=== PATIENT | female | born 1960 | race African-American/Black ===

== ENCOUNTER 2016-08-22 10:33 | Emergency (ER) | payer BC, OTHER ==
[~2016-08-22] VITALS: Ht 175.3 cm; Wt 84.0 kg
[~2016-08-22 10:33] MED LIST: CYCL7.5T33 PO; IBUP800T23 PO
[2016-08-22 10:39] VITALS: BP 118/85; PULSE 81; RESP 14; TEMP 98.5; O2SAT 100
[2016-08-22] MEDS ORDERED: BACT800T5 PO (13:17)
--- NOTE | 2016-08-22 13:18 | PD ---
HPI Chief Complaint: Bite or Sting Time Seen by Provider: 12:20 Travel History International Travel<30 days: No Contact w/Intl Traveler<30days: No Traveled to known affect area: No History of Present Illness HPI 56-year-old female presents emergency department for evaluation of right fourth digit pain. She reports that 4 days ago while fishing an insect bit the distal portion of her finger. Since then the area has become red, painful and slightly swollen. She denies puncture wound to this area. She denies seeing the insect that bit the finger. She reports normal sensation and movement of the digit. Denies fever or chills. No past medical history. PFSH Past Medical History Medical History: Denies Significant Hx Hx Anticoagulant Therapy: No Arthritis: Yes (RIGHT KNEE, OSTEOARTHRITIS) Cardiovascular Problems: No Chemotherapy: No Cerebrovascular Accident: No Diabetes: No Diminished Hearing: No Respiratory: No Tetanus Vaccination: < 5 Years Influenza Vaccination: No Menopausal: Yes : 2 Para: 2 Past Surgical History Hysterectomy: No Social History Alcohol Use: No Tobacco Use: No Substance Use: No Allergies-Medications (Allergen,Severity, Reaction): Coded Allergies: Codeine (Verified Allergy, Mild, LIGHT HEAD AND DIZZY, 05/17/16) Reported Meds & Prescriptions Reported Meds & Active Scripts Active Review of Systems Except as stated in HPI: all other systems reviewed are Neg Physical Exam Narrative GENERAL: Well-nourished, well-developed patient. SKIN: Focused skin assessment warm/dry. Mild erythema to right fourth digit distal volar aspect. HEAD: Normocephalic. EYES: No scleral icterus. No injection or drainage. NECK: Supple, trachea midline. No JVD or lymphadenopathy. CARDIOVASCULAR: Regular rate and rhythm without murmurs, gallops, or rubs. RESPIRATORY: Breath sounds equal bilaterally. No accessory muscle use. GASTROINTESTINAL: Abdomen soft, non-tender, nondistended. MUSCULOSKELETAL: No cyanosis, or edema. Mild erythema to right fourth digit distal volar aspect. No wound. No evidence of a puncture wound. Mildly tender to palpation. Mild swelling and erythema. Full painless range of motion of the digit. No lymphangitis or cellulitis. No fluctuance or abscess. BACK: Nontender without obvious deformity. No CVA tenderness. Data Data Last Documented VS Vital Signs Date Time Temp Pulse Resp B/P Pulse Ox O2 Delivery O2 Flow Rate FiO2 08/22/16 10:39 98.5 81 14 118/85 100 Room Air Orders Hand, Limited (2vws) (08/22/16 ) MDM Medical Decision Making Medical Screen Exam Complete: Yes Emergency Medical Condition: Yes Differential Diagnosis Early abscess, insect bite, less likely retained foreign body Narrative Course 56-year-old female presents emergency department for evaluation of right fourth digit pain. She reports 4 days ago while fishing an insect bit her on the distal portion of the right fourth digit. Since then the area has become tender , red, slightly swollen. On exam the right fourth digit finger pad is mildly erythematous and tender to palpation, no fluctuance, no puncture wound to indicate a retained foreign body. X-ray was negative for retained foreign body. Patient will be started on Bactrim to cover for possible early abscess. Diagnosis Primary Impression: Abscess Referrals: Primary Care Physician Additional Instructions: Take the antibiotics as prescribed. Follow-up with her doctor in 2 days for recheck. Return to the emergency department if he developed new or worsening symptoms. Scripts Sulfamethoxazole-Trimethoprim (Bactrim DS)800-160 Mg Tab1 Tab PO BID #20 TAB Prov:Jaja Patel 08/22/16 Disposition: 01 DISCHARGE HOME Condition: Stable Jaja Patel Aug 22, 2016 13:18
--- NOTE | 2016-08-22 13:25 | RADHPO ---
EXAM DATE/TIME: 08/22/2016 12:53 [facility] COMPARISON: No previous studies available for comparison. INDICATIONS : Right hand swelling & pain primarily on the anterior side of the distal 4th digit after possibly bein g bit while fishing 4 days ago. MEDICAL HISTORY : Osteoarthritis. SURGICAL HISTORY : Right wrist ENCOUNTER: Initial ACUITY: 4 - 6 days PAIN SCORE: 3/10 LOCATION: Right hand FINDINGS: Two view examination of the right hand demonstrates no soft tissue swelling, dislocation, or fracture . The joint spaces are maintained. Bony mineralization is normal. CONCLUSION: Unremarkable limited examination of the right hand. Andres Cesar Jr., MD on August 22, 2016 at 13:23 Board Certified Radiologist. This report was verified electronically.
== END 2016-08-22 13:24 | disposition home or self-care (01) ==
LOC: PHEFT 10:33
DX: L02.511 Cutaneous abscess of right hand (principal)
CPT/HCPCS: 73120; 99283

== ENCOUNTER 2016-10-09 10:29 | Emergency (ER) | payer BC ==
[~2016-10-09] VITALS: Ht 175.3 cm; Wt 85.3 kg
[~2016-10-09 10:29] MED LIST changes: +BACT800T5 PO; -CYCL7.5T33 PO; -IBUP800T23 PO
[2016-10-09 10:40] VITALS: BP 146/67; PULSE 79; RESP 18; TEMP 98.5; O2SAT 98
--- NOTE | 2016-10-09 11:22 | PD ---
HPI Chief Complaint: ENT Complaint Time Seen by Provider: 10:50 Travel History International Travel<30 days: No Contact w/Intl Traveler<30days: No Traveled to known affect area: No History of Present Illness HPI Patient is a 56 year old female who comes in complaining of cough, sore throat, congestion. She says this has been going on for two days. She says she had a fever two days ago of 99.3. She denies any difficulty swallowing. She took some Excedrin without relief. PFSH Past Medical History Hx Anticoagulant Therapy: No Arthritis: Yes (RIGHT KNEE, OSTEOARTHRITIS) Cardiovascular Problems: No Chemotherapy: No Cerebrovascular Accident: No Diabetes: No Diminished Hearing: No Respiratory: No Influenza Vaccination: No ?: Not Menopausal: Yes : 2 Para: 2 Past Surgical History Hysterectomy: No Social History Alcohol Use: No Tobacco Use: No Substance Use: No Allergies-Medications (Allergen,Severity, Reaction): Coded Allergies: Codeine (Verified Allergy, Mild, LIGHT HEAD AND DIZZY, 10/09/16) Reported Meds & Prescriptions Reported Meds & Active Scripts Active Tessalon Perles (Benzonatate) 100 Mg Cap 100 Mg PO TID PRN 7 Days Review of Systems Eyes: No: Blurred Vision HENT: Positive: Sore Throat, Congestion, No: Headaches Cardiovascular: No: Chest Pain or Discomfort Respiratory: Positive: Cough, No: Shortness of Breath Gastrointestinal: No: Nausea, Vomiting Musculoskeletal: No: Pain Skin: No Rash, No Change in Pigmentation Neurologic: No: Weakness, Dizziness Physical Exam Narrative GENERAL: Awake and alert, in no acute distress. SKIN: Focused skin assessment warm/dry. HEAD: Atraumatic. Normocephalic. EYES: Pupils equal and round. No scleral icterus. ENT: Mucous membranes pink and moist. No tonsillar swelling or exudates. No pharyngeal erythema. Uvula is midline. NECK: Trachea midline. No JVD. CARDIOVASCULAR: Regular rate and rhythm. No murmur appreciated. RESPIRATORY: No accessory muscle use. Clear to auscultation. Breath sounds equal bilaterally. MUSCULOSKELETAL: No obvious deformities. No clubbing. No cyanosis. No edema. NEUROLOGICAL: Awake and alert. No obvious cranial nerve deficits. Motor grossly within normal limits. Normal speech. Data Data Last Documented VS Vital Signs Date Time Temp Pulse Resp B/P Pulse Ox O2 Delivery O2 Flow Rate FiO2 10/09/16 11:44 66 18 141/75 100 Room Air 10/09/16 10:40 98.5 Orders Chest, Pa & Lat (10/09/16 ) MDM Medical Decision Making Medical Screen Exam Complete: Yes Emergency Medical Condition: Yes Medical Record Reviewed: Yes Differential Diagnosis URI vs pneumonia vs bronchitis Narrative Course Patient is a 56 year old female who comes in complaining of cough, sore throat, and congestion. Exam shows no acute abnormalities. Chest XR performed, shows no acute abnormalities. I explained to the patient she likely has a virus. She is advised to take over the counter cold medications. Given prescription for Tessalon Perles. Advised to follow up with a primary care doctor. Advised to return to the ED as needed for any worsening symptoms. Diagnosis Primary Impression: Upper respiratory infection Qualified Code: J06.9 - Viral upper respiratory tract infection Patient Instructions: General Instructions, Upper Respiratory Infection (ED) Additional Instructions: Take nasal decongestants from the pharmacy. Take cough medicine as needed. Take Tylenol or Ibuprofen as needed for pain. Follow up with a primary care physician. Return to the ED as needed for any worsening symptoms. Scripts Benzonatate (Tessalon Perles)100 Mg [id number] Mg PO TID PRN (COUGH) 7 Days Ref 0 Prov:Miesha Lechuga MD 10/09/16 Disposition: 01 DISCHARGE HOME Condition: Stable Miesha Lechuga MD Oct 09, 2016 11:22
[2016-10-09] MEDS ORDERED: BENZ100 PO (11:40)
[2016-10-09 11:44] VITALS: BP 141/75; PULSE 66; RESP 18; O2SAT 100
--- NOTE | 2016-10-09 12:21 | RADRPT ---
EXAM DATE/TIME: 10/09/2016 11:11 [facility] COMPARISON: CHEST PA & LAT, October 23, 2014, 16:54. INDICATIONS : Chest tightness and cough for 2 days. MEDICAL HISTORY : None. SURGICAL HISTORY : None. ENCOUNTER: Initial ACUITY: 2 days PAIN SCORE: 3/10 LOCATION: Bilateral chest FINDINGS: PA and lateral views of the chest demonstrate the lungs to be symmetrically aerated without evidence of mass, infiltrate or effusion. The cardiomediastinal contours are unremarkable. Osseous structure s are intact with some degenerative spurring of the dorsal spine. CONCLUSION: No acute cardiopulmonary process. Dirk Callaway MD on October 09, 2016 at 12:18 Board Certified Radiologist. This report was verified electronically.
== END 2016-10-09 12:59 | disposition home or self-care (01) ==
LOC: PHEFT 10:29
DX: J06.9 Acute upper respiratory infection, unspecified (principal); B97.89 Other viral agents as the cause of diseases classified elsewhere; R05 Cough; Z87.39 Personal history of other diseases of the musculoskeletal system and connective tissue
CPT/HCPCS: 71020; 99283

== ENCOUNTER 2016-11-23 11:50 | Emergency (ER) | payer BC ==
[~2016-11-23] VITALS: Ht 175.3 cm; Wt 85.0 kg
[~2016-11-23 11:50] MED LIST changes: -BACT800T5 PO; +BENZ100 PO
[2016-11-23 11:52] VITALS: BP 169/96; PULSE 73; RESP 15; TEMP 98.4; O2SAT 98
[2016-11-23 12:05] VITALS: BP 123/85; PULSE 70; RESP 24; O2SAT 100
[2016-11-23] MEDS ORDERED: SODIUM CHLOR 0.9% 1000 ML INJ 1,000 ML IV SCH (12:12)
[2016-11-23] MEDS ORDERED: ONDANSETRON HCL 4 MG/2 ML VIAL IVP ONE (12:15)
[2016-11-23] MEDS ORDERED: MORPHINE SULFATE 4 MG/ML INJ IV PUSH ONE (12:15)
[2016-11-23] MEDS ORDERED: SODIUM CHLORIDE 0.9% FLUSH 10 ML FLUSH IV FLUSH PRN (12:15)
--- NOTE | 2016-11-23 12:21 | PD ---
HPI Chief Complaint: Abdominal Pain Time Seen by Provider: 12:08 Travel History International Travel<30 days: No Contact w/Intl Traveler<30days: No Traveled to known affect area: No History of Present Illness HPI 56-year-old Afro-[place] female presents the emergency department with worsening right lower quadrant pain and tenderness. Patient states he was seen by her primary care physician 2 days ago and given Levaquin 750 daily as well as metronidazole 250 mg 3 times a day. Patient states the pain has been worsening over the last 2 days. She has decreased appetite but denies nausea or vomiting. She states she is still moving her bowels with laxatives. She has no history of abdominal surgeries or diverticulitis. She denies fever or chills. Patient describes the pain as a sharp pain in the right lower quadrant worse with movement, cough, walking, and riding in the car today. Patient denies urinary or vaginal symptoms. She is allergic to codeine but has no known drug allergies otherwise. PFSH Past Medical History Hx Anticoagulant Therapy: No Arthritis: Yes (RIGHT KNEE, OSTEOARTHRITIS) Cardiovascular Problems: No Chemotherapy: No Cerebrovascular Accident: No Diabetes: No Diminished Hearing: No Hypertension: Yes Respiratory: No ?: Not Menopausal: Yes : 2 Para: 2 Past Surgical History Surgical History: No Previous Surgery Hysterectomy: No Social History Alcohol Use: No Tobacco Use: No Substance Use: No Allergies-Medications (Allergen,Severity, Reaction): Coded Allergies: codeine (Unverified Allergy, Mild, LIGHT HEAD AND DIZZY, 11/23/16) Reported Meds & Prescriptions Reported Meds & Active Scripts Active No Active Prescriptions or Reported Medications Review of Systems Except as stated in HPI: all other systems reviewed are Neg General / Constitutional: No: Fever, Chills Eyes: No: Visual changes HENT: No: Headaches Cardiovascular: No: Chest Pain or Discomfort Respiratory: No: Shortness of Breath Gastrointestinal: Positive: Nausea, Abdominal Pain, Loss of Appetite, No: Vomiting, Diarrhea, Constipation Genitourinary: No: Urgency, Frequency, Dysuria, Decreased Urinary Output, Pelvic Pain, Flank Pain Musculoskeletal: No: Pain Skin: No Rash Neurologic: No: Weakness Psychiatric: No: Depression Endocrine: No: Polydipsia Hematologic/Lymphatic: No: Easy Bruising Physical Exam Narrative GENERAL: Patient is in no acute distress. SKIN: Warm and dry. Normal color. Normal turgor. No rash. HEAD: Atraumatic. Normocephalic. EYES: Pupils equal and round. No scleral icterus. No injection or drainage. ENT: No nasal bleeding or discharge. Mucous membranes pink and moist. Pharynx is clear. Airway is patent. NECK: Trachea midline. Supple and nontender. CARDIOVASCULAR: Regular rate and rhythm. RESPIRATORY: No accessory muscle use. Clear to auscultation. Breath sounds equal bilaterally. GASTROINTESTINAL: Abdomen soft, moderate right lower quadrant tenderness with positive rebound and psoas sign, nondistended. Bowel sounds are somewhat diminished in all quadrants. No CVA tenderness. Hepatic and splenic margins not palpable. MUSCULOSKELETAL: Extremities without clubbing, cyanosis, or edema. No obvious deformities. NEUROLOGICAL: Awake and alert. No obvious cranial nerve deficits. Motor grossly within normal limits. Five out of 5 muscle strength in the arms and legs. Normal speech. PSYCHIATRIC: Appropriate mood and affect; insight and judgment normal. Data Data Last Documented VS Vital Signs Date Time Temp Pulse Resp B/P (MAP) Pulse Ox O2 Delivery O2 Flow Rate FiO2 11/23/16 15:41 71 20 170/75 (106) 100 Room Air 11/23/16 11:52 98.4 Orders Orders Complete Blood Count With Diff (11/23/16 12:12) Comprehensive Metabolic Panel (11/23/16 12:12) Lipase (11/23/16 12:12) Lactic Acid (11/23/16 12:12) Prothrombin Time / Inr (Pt) (11/23/16 12:12) Act Partial Throm Time (Ptt) (11/23/16 12:12) Urinalysis - C+S If Indicated (11/23/16 12:12) Iv Access Insert/Monitor (11/23/16 12:12) Ecg Monitoring (11/23/16 12:12) Oximetry (11/23/16 12:12) NPO (11/23/16 12:12) Morphine Inj (Morphine Inj) (11/23/16 12:15) Ondansetron Inj (Zofran Inj) (11/23/16 12:15) Sodium Chlor 0.9% 1000 Ml Inj (Ns 1000 M (11/23/16 12:12) Sodium Chloride 0.9% Flush (Ns Flush) (11/23/16 12:15) Electrocardiogram (11/23/16 12:12) Oral Contrast - Adult (11/23/16 12:18) Vascular Access Team Consult/P PRN (11/23/16 12:35) Vascular Poc Ultrasound (11/23/16 ) Ct Abd/Pel W Iv Contrast(Rout) (11/23/16 14:37) Iohexol 350 Inj (Omnipaque 350 Inj) (11/23/16 15:21) Labs Laboratory Tests Test 11/23/16 13:00 White Blood Count 5.1 TH/MM3 Red Blood Count 3.96 MIL/MM3 Hemoglobin 11.2 GM/DL Hematocrit 33.4 % Mean Corpuscular Volume 84.3 FL Mean Corpuscular Hemoglobin 28.2 PG Mean Corpuscular Hemoglobin Concent 33.5 % Red Cell Distribution Width 14.3 % Platelet Count 288 TH/MM3 Mean Platelet Volume 7.1 FL Neutrophils (%) (Auto) 37.4 % Lymphocytes (%) (Auto) 51.1 % Monocytes (%) (Auto) 9.8 % Eosinophils (%) (Auto) 1.3 % Basophils (%) (Auto) 0.4 % Neutrophils # (Auto) 1.9 TH/MM3 Lymphocytes # (Auto) 2.6 TH/MM3 Monocytes # (Auto) 0.5 TH/MM3 Eosinophils # (Auto) 0.1 TH/MM3 Basophils # (Auto) 0.0 TH/MM3 CBC Comment DIFF FINAL Differential Comment Prothrombin Time 10.7 SEC Prothromb Time International Ratio 1.0 RATIO Activated Partial Thromboplast Time 27.5 SEC Urine Color YELLOW Urine Turbidity CLEAR Urine pH 7.0 Urine Specific Gibbs 1.013 Urine Protein NEG mg/dL Urine Glucose (UA) NEG mg/dL Urine Ketones NEG mg/dL Urine Occult Blood NEG Urine Nitrite NEG Urine Bilirubin NEG Urine Urobilinogen LESS THAN 2.0 MG/DL Urine Leukocyte Esterase TRACE Urine RBC 1 /hpf Urine WBC 3 /hpf Urine Squamous Epithelial Cells <1 /hpf Microscopic Urinalysis Comment CULT NOT INDICATED Blood Urea Nitrogen 12 MG/DL Creatinine 1.02 MG/DL Random Glucose 85 MG/DL Total Protein 7.7 GM/DL Albumin 3.7 GM/DL Calcium Level 8.8 MG/DL Alkaline Phosphatase 100 U/L Aspartate Amino Transf (AST/SGOT) 19 U/L Alanine Aminotransferase (ALT/SGPT) 21 U/L Total Bilirubin 0.8 MG/DL Sodium Level 141 MEQ/L Potassium Level 3.6 MEQ/L Chloride Level 107 MEQ/L Carbon Dioxide Level 30.2 MEQ/L Anion Gap 4 MEQ/L Estimat Glomerular Filtration Rate 68 ML/MIN Lactic Acid Level 0.6 mmol/L Lipase 99 U/L [facility] Medical Decision Making Medical Screen Exam Complete: Yes Emergency Medical Condition: Yes Medical Record Reviewed: Yes Differential Diagnosis Right lower quadrant pain. Appendicitis. Diverticulitis. Ovarian cyst. Urinary tract infection. Kidney stone. Narrative Course Patient is medically stable at time of exam. Labs ordered including CBC, CMP, lactic acid, lipase, urinalysis. EKG, chest x-ray, and abdominal pelvis CT is ordered with IV and oral contrast. IV access is obtained, and the patient is a 4 mg Zofran, 4 mg morphine, and 1000 mL normal saline bolus. CBC is unremarkable except for hemoglobin 11.2 and hematocrit of 33.4. CMP is unremarkable. Lactic acidosis 0.6. Coagulation studies are normal. Urinalysis is unremarkable. CT scan showed no acute process per radiologist. The patient is felt to have a muscle skeletal pain as nothing else came up showing any positive results. Patient is recommended to take Tylenol or ibuprofen as needed. Patient can use heat and ice as needed. Patient can return as needed. Diagnosis Primary Impression: Abdominal wall pain in right lower quadrant Referrals: Primary Care Physician Patient Instructions: Acute Abdominal Pain (ED), General Instructions, Groin Pain (ED) Additional Instructions: CBC is unremarkable except for hemoglobin 11.2 and hematocrit of 33.4. CMP is unremarkable. Lactic acidosis 0.6. Coagulation studies are normal. Urinalysis is unremarkable. CT scan showed no acute process per radiologist. The patient is felt to have a muscle skeletal pain as nothing else came up showing any positive results. Patient is recommended to take Tylenol or ibuprofen as needed. Patient can use heat and ice as needed. Patient can return as needed. Med/Other Pt SpecificInfo: No Change to Meds, No Meds Exist/No RX given Scripts No Active Prescriptions or Reported Meds Disposition: 01 DISCHARGE HOME Condition: Stable Evans Restrepo Nov 23, 2016 12:21
[2016-11-23 12:54] VITALS: O2SAT 97
[2016-11-23 13:15] LABS: AUTOMATED NEUTROPHIL # 1.9 TH/MM3 (1.8-7.7); BASOPHIL % 0.4 % (0.0-2.0); EOSINOPHIL # 0.1 TH/MM3 (0-0.4); EOSINOPHIL % 1.3 % (0.0-4.0); HEMATOCRIT 33.4 % (35.0-46.0); HEMO FLAGS DIFF FINAL; LYMPH % 51.1 % (9.0-44.0); LYMPHOCYTE # 2.6 TH/MM3 (1.0-4.8); MEAN CELL VOLUME 84.3 FL (80.0-100.0); MEAN CORPUSCULAR HEMOGLOBIN 28.2 PG (27.0-34.0); MEAN CORPUSCULAR HGB CONC 33.5 % (32.0-36.0); MONO % 9.8 % (0.0-8.0); NEUT % 37.4 % (16.0-70.0); PLATELET COUNT 288 TH/MM3 (150-450); RED BLOOD COUNT 3.96 MIL/MM3 (4.00-5.30); RED CELL DISTRIBUTION WIDTH 14.3 % (11.6-17.2); WHITE BLOOD COUNT 5.1 TH/MM3 (4.0-11.0)
[2016-11-23 13:19] LABS: BLOOD, URINE NEG (NEG); COMMENT (UR) CULT NOT INDICATED; CULTURE IF INDICATED CULT NOT INDICATED; GLUCOSE,URINE NEG (NEG); KETONE, URINE NEG (NEG); NITRITE,URINE NEG (NEG); SQUAMOUS EPITHELIAL CELL URINE <1 /hpf (0-5); URINE COLOR YELLOW (YELLW/STRAW)
[2016-11-23 13:28] LABS: APTT (PATIENT) 27.5 SEC (24.3-30.1); PROTHROMBIN TIME - PATIENT 10.7 SEC (9.8-11.6)
[2016-11-23 13:30] LABS: ALT (GPT) 21 U/L (10-53); ANION GAP 4 MEQ/L (5-15); AST (GOT) 19 U/L (15-37); BICARBONATE 30.2 MEQ/L (21.0-32.0); BLOOD UREA NITROGEN 12 MG/DL (7-18); CHLORIDE 107 MEQ/L (98-107); GLOMERULAR FILTRATION RATE 68 ML/MIN (>89); POTASSIUM 3.6 MEQ/L (3.5-5.1); SODIUM (NA) 141 MEQ/L (136-145)
[2016-11-23 13:32] LABS: ALKALINE PHOSPHATASE 100 U/L (45-117); TOTAL BILIRUBIN ADULT 0.8 MG/DL (0.2-1.0)
[2016-11-23] MEDS ORDERED: IOHEXOL 350 MG/ML 10 ML VIAL (for RAD DIAG) IV PUSH ONE (15:21)
[2016-11-23 15:41] VITALS: BP 170/75; PULSE 71; RESP 20; O2SAT 100
--- NOTE | 2016-11-23 15:54 | RADRPT ---
EXAM DATE/TIME: 11/23/2016 15:16 [facility] COMPARISON: CT ABDOMEN & PELVIS W CONTRAST, December 28, 2014, 15:01. INDICATIONS : Right lower quadrant pain. IV CONTRAST: 80 cc Omnipaque 350 (iohexol) IV ORAL CONTRAST: No oral contrast ingested. RADIATION DOSE: 5.45 CTDIvol (mGy) MEDICAL HISTORY : Hypertension. SURGICAL HISTORY : None. ENCOUNTER: Initial ACUITY: 1 day PAIN SCALE: 4/10 LOCATION: Right lower quadrant TECHNIQUE: Volumetric scanning of the abdomen and pelvis was performed. Using automated exposure control and adjustment of the mA and/or kV according to patient size, radiation dose was kept as low as reasonably achievable to obtain optimal diagnostic quality images. DICOM format image data is av ailable electronically for review and comparison. FINDINGS: CT Abdomen: The liver, spleen, pancreas, kidneys, adrenals are unremarkable. There is no evidence for any appreciable pathological adenopathy, free fluid, or bowel obstruction. There is slight left mark g base atelectasis. CT pelvis: There is no evidence for mass, abscess formation, or any significant adenopathy within the pelvis. The appendix appears intact without definite signs of appendicitis. CONCLUSION: Essentially unremarkable study. Charlie Flores MD on November 23, 2016 at 15:50 Board Certified Radiologist. This report was verified electronically.
--- NOTE | 2016-11-24 13:28 | EKG ---
Date Performed: 11/23/2016 Time Performed: 13:19:26 PTAGE: 56 years EKG: Sinus rhythm LOW QRS VOLTAGE IN PRECORDIAL LEADS INCOMPLETE RIGHT BUNDLE BRANCH BLOCK Compared to prior tracing n o significant change BORDERLINE ECG PREVIOUS TRACING : 05/24/2000 23.54 DOCTOR: Alphonso Knight Interpretating Date/Time 11/24/2016 13:27:14
== END 2016-11-23 16:19 | disposition home or self-care (01) ==
LOC: NEPC 11:50
DX: R10.31 Right lower quadrant pain (principal); R05 Cough; I10 Essential (primary) hypertension
CPT/HCPCS: 74177; 76937; 80053; 81001; 83605; 83690; 85025; 85610; 85730; 93005; 96361; 96374; 96375; 99285; J2270; J2405; J7030; Q9967

== ENCOUNTER 2017-04-25 17:04 | Emergency (ER) | payer OTHER, BC ==
[2017-04-25 17:30] VITALS: BP 181/91; PULSE 86; RESP 16; TEMP 98.5; O2SAT 100
[2017-04-25] MEDS ORDERED: METO25TA3 PO (17:30)
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
[2017-04-25] MEDS ORDERED: ORPHENADRINE INJ 60 MG/2 ML AMP IM ONE (18:30)
[2017-04-25] MEDS ORDERED: KETOROLAC TROMETHAMINE 60 MG/2 ML (IM) VIAL IM ONE (18:30)
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
[2017-04-25] MEDS ORDERED: ROBA750T PO (19:29)
[2017-04-25] MEDS ORDERED: IBUP1TAB7 PO (19:29)
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
== END 2017-04-25 19:36 | disposition home or self-care (01) ==
LOC: PHEFT 17:04
DX: S29.012A Strain of muscle and tendon of back wall of thorax, initial encounter (principal); S39.012A Strain of muscle, fascia and tendon of lower back, initial encounter; I10 Essential (primary) hypertension; V49.49XA Driver injured in collision with other motor vehicles in traffic accident, initial encounter; Z88.5 Allergy status to narcotic agent
CPT/HCPCS: 71045; 72125; 72128; 72131; 96372; 99284; J1885; J2360